=== PATIENT | female | born 1995 | race African-American/Black ===

== ENCOUNTER 2021-02-23 11:51 | Emergency (ER) | payer MEDICAID, SELFPAY ==
[2021-02-23 12:35] LABS: #Eosinphils 0.1 10x3/uL (0.0-0.5); #Monocytes 0.6 10x3/uL (0.0-1.1); #Neutrophils 7.8 10x3/uL (1.5-8.4); %Basophils 0.4 % (0.0-2.0); %Eosinophils 1.1 % (0.0-6.0); %Lymphocytes 22.1 % (18.0-47.0); %Monocytes 5.3 % (0.0-10.0); %Neutrophils 70.7 % (40.0-75.0); Hemoglobin 11.1 g/dL (12.0-15.5); Mean Corpuscular HGB CONC 32.7 g/dL (32.0-36.0); Mean Corpuscular Hemoglobin 26.8 pg (27.0-33.0); Mean Corpuscular Volume 81.9 fl (81.6-98.3); Mean Platelet Volume 10.4 fl (7.4-10.4); Platelet Count 286 10x3/uL (150-450); Red Blood Cell (RBC) Count 4.14 10x6/uL (3.90-5.03)
[2021-02-23 12:51] LABS: ALT (SGPT) 21 U/L (8-55); AST (SGOT) 16 U/L (5-34); Alkaline Phosphatase 66 U/L (40-110); Anion Gap 14 mmol/L (10-20); BUN (Urea Nitrogen) 4 mg/dL (7.0-18.7); Bilirubin, Total 0.3 mg/dL (0.2-1.2); Calc. Creatinine Clearance 0 mL/min (70-130); Calcium 9.7 mg/dL (7.8-10.44); Carbon Dioxide 22 mmol/L (22-29); Chloride 104 mmol/L (98-107); Globulin 3.8 g/dL (2.4-3.5); Glucose 99 mg/dL (70-105); Potassium 3.7 mmol/L (3.5-5.1); Protein, Total 7.8 g/dL (6.0-8.3); Sodium 136 mmol/L (136-145)
[2021-02-23 13:07] LABS: Bilirubin Neg (Negative); Blood, Urine 150 (Negative); Clarity Slightly Cloudy (Clear); Glucose, Urine (Dipstick) Normal (Negative); Ketone, Urine Negative (Negative); Leukocyte 100 (Negative); Nitrite Negative (Negative); Protein, Urine (Dipstick) Negative (Neg-Trace); Urobilinogen Normal mg/dL (Less than 2)
[2021-02-23 13:17] LABS: Bacteria/HPF 1+ HPF (None Seen)
[2021-02-25 21:18] LABS: Chlamydia by PCR Not Detected (NotDetected); GC by PCR Not Detected (NotDetected)
== END 2021-02-23 15:35 | disposition home or self-care (01) ==
LOC: CSHERS 11:51
DX: O20.0 Threatened abortion (principal); O98.811 Other maternal infectious and parasitic diseases complicating pregnancy, first trimester; R82.71 Bacteriuria; Z3A.13 13 weeks gestation of pregnancy
CPT/HCPCS: 36415; 76815; 80053; 81003; 81015; 84702; 85025; 86900; 86901; 87086; 87480; 87491; 87510; 87591; 87660

== ENCOUNTER 2021-06-30 21:34 | Day surgery (SDC) | payer MEDICAID ==
[2021-06-30 22:00] VITALS: BMI 41.1
[2021-06-30] MEDS ORDERED: Promethazine HCl 25 MG in Sodium Chloride 0.9% 50 ML IVPB PRN (22:32)
[2021-06-30] MEDS ORDERED: hydrALAZINE 20 MG/ML VIAL SLOW IVP PRN (22:32)
[2021-06-30] MEDS ORDERED: Promethazine HCl 25 MG/ML VIAL IM PRN (22:40)
[2021-06-30] MEDS ORDERED: Lactated Ringer's 1,000 ML IV SCH (22:45)
[2021-06-30] MEDS ORDERED: Promethazine HCl 25 MG/ML VIAL ONE (22:45)
[2021-06-30] MEDS ORDERED: Acetaminophen 500 MG TAB PO SCH (22:45)
[2021-06-30 23:49] LABS: SARS-CoV-2 NAA Rapid Test DETECTED (NotDetected)
[2021-07-01 00:04] VITALS: TEMP 99
[2021-07-01] MEDS ORDERED: Lactated Ringer's 1,000 ML IV SCH (00:30)
== END 2021-07-01 02:50 | disposition home or self-care (01) ==
LOC: CSHLD/OP 21:34
PROVIDERS: ATTEND Obstetrics & Gynecology
DX: O98.513 Other viral diseases complicating pregnancy, third trimester (principal); U07.1 COVID-19; O99.013 Anemia complicating pregnancy, third trimester; O09.213 Supervision of pregnancy with history of pre-term labor, third trimester; Z3A.31 31 weeks gestation of pregnancy
CPT/HCPCS: 0240U; 96360; 96361; 96372; 99284; J2550

== ENCOUNTER 2021-07-29 17:31 | Day surgery (SDC) | payer MEDICAID, OTHER ==
[2021-07-29 18:58] VITALS: BMI 40.1
[2021-07-29] MEDS ORDERED: Acetaminophen 500 MG TAB PO SCH (19:00)
== END 2021-07-29 19:15 | disposition home or self-care (01) ==
LOC: CSHLD/OP 17:31
PROVIDERS: ATTEND Obstetrics & Gynecology
DX: O98.813 Other maternal infectious and parasitic diseases complicating pregnancy, third trimester (principal); B37.3 Candidiasis of vulva and vagina; O99.891 Other specified diseases and conditions complicating pregnancy; R10.2 Pelvic and perineal pain; O09.213 Supervision of pregnancy with history of pre-term labor, third trimester; Z3A.35 35 weeks gestation of pregnancy; Z86.16 Personal history of COVID-19
CPT/HCPCS: 99283